=== PATIENT | male | born 1960 | race Asian ===

== ENCOUNTER 2024-04-27 09:10 | Outpatient (REF) | payer OTHER, SELFPAY ==
--- NOTE | ~2024-04-27 | XR_ITS ---
EXAMINATION: XR HAND/WRIST, LEFT CLINICAL INFORMATION: Left hand, evaluate DJD thumb. COMPARISON: None available. TECHNIQUE: 5 views of the left hand and wrist. FINDINGS: Moderate degenerative changes in the first carpometacarpal, metacarpophalangeal and interphalangeal joints with joint space narrowing and hypertrophic change. Narrowing of the radiocarpal space. Moderate degenerative changes in multiple IP joints. Hypertrophic change and joint space narrowing. XR/XR hand wrist LT IMPRESSION: 1/ Moderate degenerative changes in the first carpometacarpal, metacarpophalangeal and interphalangeal joints. 2. Moderate degenerative changes in multiple IP joints. 3. Additional imaging with CT scan or MRI should be considered for better visualization as these modalities are much more sensitive for detection of fracture or other underlying pathology.
--- NOTE | ~2024-04-27 | XR_ITS ---
EXAMINATION: XR CERVICAL SPINE CLINICAL INFORMATION: Neck pain. COMPARISON: None available. TECHNIQUE: 6 views of the cervical spine. FINDINGS: Straightening of the normal cervical lordosis. Diffuse demineralization. Spondylosis with moderate loss of disc space height at C6-C7. XR/XR cervical spine 3V IMPRESSION: Moderate degenerative disc disease at C6-C7.
== END 2024-04-27 09:11 | disposition home or self-care (01) ==
LOC: HO.HOSX 09:10
PROVIDERS: PCP Internal Medicine; Visit Provider Physical Medicine & Rehabilitation
DX: M79.642 Pain in left hand (principal); R20.0 Anesthesia of skin; M54.2 Cervicalgia
CPT/HCPCS: 72040; 73110; 73130; 99202

== ENCOUNTER 2024-04-27 09:10 | Outpatient (AMB) | payer OTHER, SELFPAY ==
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
[2024-04-27 09:31] VITALS: BMI 28.1
== END 2024-04-27 12:35 | disposition home or self-care (01) ==
PROVIDERS: PCP Internal Medicine; Visit Provider Physical Medicine & Rehabilitation
DX: M79.642 Pain in left hand (principal); R20.0 Anesthesia of skin
CPT/HCPCS: 99203

== ENCOUNTER 2024-05-19 13:37 | Outpatient (REF) | payer OTHER, SELFPAY ==
--- NOTE | 2024-05-19 13:43 | EMG_ITS ---
Chief complaint: Left hand numbness, left-sided hip pain with numbness in left leg Reason for referral: Evaluate for radiculopathy Procedure done: Left upper extremity and left lower extremity NCS/EMG Precautions and/or limitations: None The limb temperature was monitored continuously and remained between 32-36 degrees C during the performance of the NCS. Nerve Conduction Studies Anti Sensory Summary Table ?Stim Site NR Onset (ms) Norm Onset (ms) Peak (ms) Norm Peak (ms) O-P Amp (?V) Norm O-P Amp Site1 Site2 Delta-0 (ms) Dist (cm) Joseph (m/s) Norm Joseph (m/s) Left Median Anti Sensory (2nd Digit) Wrist ? 2.8 3.4 <3.6 23.5 >10 Wrist 2nd Digit 2.8 14.0 50 Left Sural Anti Sensory (Lat Mall) Calf ? 2.5 3.0 <4.0 17.7 >5.0 Calf Lat Mall 2.5 14.0 56 Left Ulnar Anti Sensory (5th Digit) Wrist ? 1.4 2.8 <3.7 16.6 >15.0 Wrist 5th Digit 1.4 14.0 100 Motor Summary Table ?Stim Site NR Onset (ms) Norm Onset (ms) O-P Amp (mV) Norm O-P Amp iAmp (mV) Amp (1st) (%) Site1 Site2 Delta-0 (ms) Dist (cm) Joseph (m/s) Norm Joseph (m/s) Left Median Motor (Abd Poll Brev) Wrist ? 4.6 <3.9 6.7 >4.5 8.3 100.0 Elbow Wrist 3.8 21.0 55 >45 Elbow ? 8.4 7.0 8.5 104.5 Left Peroneal Motor (Ext Dig Brev) Ankle ? 3.8 <4.0 5.9 >2.5 7.8 100.0 Ankle Ext Dig Brev 3.8 0.0 B Fib ? 9.6 7.8 10.3 132.2 B Fib Ankle 5.8 31.5 54 >40 Poplt ? 10.4 7.7 10.2 130.5 Poplt B Fib 0.8 5.0 62 >40 Left Tibial Motor (Abd Arroyo Brev) Ankle ? 4.5 <5 17.1 >2.5 23.1 100.0 Ankle Abd Arroyo Brev 4.5 0.0 Knee ? 12.5 11.4 14.7 66.7 Knee Ankle 8.0 36.0 45 >40 Left Ulnar Motor (Abd Dig Minimi) Wrist ? 2.3 <3.0 7.4 >5 8.5 100.0 B Elbow Wrist 3.4 20.5 60 >45 B Elbow ? 5.7 6.6 7.7 89.2 A Elbow B Elbow 2.0 10.0 50 >45 A Elbow ? 7.7 6.3 7.4 85.1 Comparison Summary Table ?Stim Site NR Peak (ms) Norm Peak (ms) P-T Amp (?V) Site1 Site2 Delta-P (ms) Norm Delta (ms) Left Median/Radial Dig I Comparison (Digit 1 - 10cm) Median ? 2.9 <2.9 39.0 Median Radial 0.6 Radial ? 2.3 <2.8 35.4 EMG ?Side Muscle Nerve Root Ins Act Fibs Psw Amp Dur Poly Recrt Int Pat Comment Left 1stDorInt Ulnar C8-T1 Nml Nml Nml Nml Nml 0 Nml Complete Left FlexCarRad Median C6-7 Nml Nml Nml Nml Nml 0 Nml Complete Left Biceps Musculocut C5-6 Nml Nml Nml Nml Nml 0 Nml Complete Left Triceps Radial C6-7-8 Nml Nml Nml Nml Nml 0 Nml Complete Left Deltoid Axillary C5-6 Nml Nml Nml Nml Nml 0 Nml Complete Left AbdHallucis MedPlantar S1-2 Nml Nml Nml Nml Nml 0 Nml Complete Left AntTibialis Dp Br Peron L4-5 Nml Nml Nml Nml Nml 0 Nml Complete Left PostTibialis Tibial L5, S1 Nml Nml Nml Nml Nml 0 Nml Complete Left MedGastroc Tibial S1-2 Nml Nml Nml Nml Nml 0 Nml Complete Left VastusMed Femoral L2-4 Nml Nml Nml Nml Nml 0 Nml Complete FINDINGS: Left median motor nerve showed prolonged distal latency, normal amplitude and normal conduction velocity. Left median sensory nerve showed prolonged peak latency. All other nerves tested were within normal. Concentric needle EMG was performed in selected muscles of the left upper extremity and left lower extremity. Study did not reveal signs of electric abnormalities as shown in the table above. IMPRESSION: 1. This is an abnormal study. 2. There is electrodiagnostic evidence for left mild-moderate median neuropathy at the wrist, consistent with Carpal Tunnel Syndrome. 3. There is no electrodiagnostic evidence for ulnar neuropathy, brachial plexopathy, cervical radiculopathy, peroneal neuropathy, tibial neuropathy. lumbosacral plexopathy, lumbar radiculopathy, or peripheral neuropathy. CLINICAL COMMENT: Suspect symptoms on left upper extremity is separate from left lower extremity. Carpal Tunnel Syndrome would explain numbness in left hand. Patient mentions going to pain management for left hip pain and had injection. Would be interested to review notes from pain management. Patient to be seen for follow up at physiatry office. Thank you for your kind referral. Yamileth Betancourt MD, HEATH Board Certified, [place] Board of Physical Medicine and Rehabilitation (ABPMR) Board Certified, [place] Board [employer] Electrodiagnostic Medicine (ABEM) CODIN [id number] x 2 [facility]
== END 2024-05-19 13:38 | disposition home or self-care (01) ==
LOC: HO.NEURO 13:37
PROVIDERS: Visit Provider Physical Medicine & Rehabilitation
DX: M79.642 Pain in left hand (principal); R20.0 Anesthesia of skin
CPT/HCPCS: 95886; 95910

== ENCOUNTER → 2024-05-19 13:43 | Outpatient (BNV) | payer OTHER, SELFPAY | PROVIDERS: Visit Provider Physical Medicine & Rehabilitation | DX: G56.02 Carpal tunnel syndrome, left upper limb (principal); M79.605 Pain in left leg; R20.0 Anesthesia of skin | CPT/HCPCS: 95886; 95910 ==

== ENCOUNTER 2024-06-23 11:34 | Outpatient (AMB) | payer OTHER, SELFPAY ==
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
[2024-06-23 11:59] VITALS: BMI 28.1
== END 2024-06-23 12:19 | disposition home or self-care (01) ==
PROVIDERS: Visit Provider Physical Medicine & Rehabilitation
DX: G56.02 Carpal tunnel syndrome, left upper limb (principal); M19.042 Primary osteoarthritis, left hand
CPT/HCPCS: 99213

== ENCOUNTER → 2024-06-23 11:34 | Outpatient (BNVA) | payer OTHER, SELFPAY | PROVIDERS: Visit Provider Physical Medicine & Rehabilitation | DX: G56.02 Carpal tunnel syndrome, left upper limb (principal); M19.042 Primary osteoarthritis, left hand | CPT/HCPCS: 99212 ==

== ENCOUNTER 2024-07-20 11:13 | Outpatient (AMB) | payer OTHER, SELFPAY ==
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
== END 2024-07-20 11:46 | disposition home or self-care (01) ==
PROVIDERS: Visit Provider Orthopaedic Surgery
DX: G56.02 Carpal tunnel syndrome, left upper limb (principal); M18.12 Unilateral primary osteoarthritis of first carpometacarpal joint, left hand; Z04.3 Encounter for examination and observation following other accident
CPT/HCPCS: 99204

== ENCOUNTER → 2024-07-20 11:13 | Outpatient (BNVA) | payer OTHER, SELFPAY | PROVIDERS: Visit Provider Orthopaedic Surgery | DX: G56.02 Carpal tunnel syndrome, left upper limb (principal); M18.12 Unilateral primary osteoarthritis of first carpometacarpal joint, left hand; M79.642 Pain in left hand; M25.532 Pain in left wrist | CPT/HCPCS: 99202 ==

== ENCOUNTER 2024-09-12 11:34 | Day surgery (SDC) | payer OTHER, SELFPAY ==
[2024-09-12 07:22] VITALS: BMI 28.3
[2024-09-12 11:43] VITALS: BP 127/60; PULSE 69; RESP 18; TEMP 36.4; O2SAT 97
--- NOTE | 2024-09-12 12:21 | P.OP_ITS ---
Operative Note Operative Note Date of Service: 09/12/24 Narrative: Preop diagnosis: 1. Left Carpal tunnel syndrome Postop diagnosis: same Procedure: 1. Left Carpal tunnel release Surgeon: Cony Brewer MD Sales And Service Associate: None Anesthesia: local block using 1% lidocaine with epinephrine Findings: Thickened transverse carpal ligament. EBL: Less than 5 mL Specimens: None Complications: None Disposition: Brought to recovery room in stable condition Plan: Follow-up for 10-14 days for wound check and suture removal Indications: The patient is 63 years old, with left carpal tunnel syndrome that has been unresponsive to nonoperative management. The risks and benefits of operative treatment including but not limited to risk of damage to blood vessels, nerves, tendons, infection, persistent pain, persistent symptoms, or possible need for additional surgery were discussed with the patient and the patient wishes to proceed with surgery. Procedure: Once consent was obtained a local block was performed using a combination of 1% lidocaine with epinephrine. The patient was then brought back to the operating suite and placed on the operative table in supine position. The left upper extremity was prepped and draped in a standard surgical fashion. Once assured that we had a good block, a 2.0 cm longitudinal incision was made centered over the carpal tunnel. The incision was made through the skin to the subcutaneous tissues using a #15 blade. Dissection was made down to the level of the transverse carpal ligament with care being taken to protect the palmar cutaneous nerve. Once the transverse carpal ligament was clearly visualized, a longitudinal incision was made in the transverse carpal ligament 1st using a #15 blade, then using tenotomy scissors under direct visualization. Care was taken to look for and protect the motor branch of the median nerve when seen in this area. Once satisfied with our carpal tunnel release the wound was copiously irrigated with normal saline and hemostasis was obtained with a brief period of local pressure. The skin edges were reapproximated with some 5.0 nylon suture material and a sterile dressing was applied. The patient appears to have tolerated the procedure well and with no complicatio ns. All digits were well vascularized at the conclusion of the case.
--- NOTE | 2024-09-12 12:21 | MHC.SHP ---
Pre-Procedural Eval Section A - 24 Hr Update-Section A only Date of Service: 09/12/24 The patient is an INPATIENT: No Changes since office visit: No Cold of Flu in the past 2 weeks, No New Medical Problems, No Changes in Medication and No Patient answered all questions The patient has been examined within 24 hours of the surgical procedure. The History & Physical has been completed within 30 days and I have reviewed it.: Yes Section B - Complete if H&P > 30 days Chief Complaint: Carpal tunnel syndrome, left upper limb Allergies: Allergies Allergy/AdvReac Type Severity Reaction Status Date / Time apple Allergy Intermediate Itching Verified 07/20/24 11:18 banana Allergy Intermediate Itching Verified 07/20/24 11:18 peach Allergy Intermediate Itching Verified 07/20/24 11:18 Plan Diagnosis/Plan: Unchanged I have reviewed the history and physical and performed a pertinent physical examination on my patient. No changes have occurred unless specified. Time Spent With Patient Time: Total time managing care of this patient today ____ minutes.
[2024-09-12 13:43] VITALS: BP 111/70; PULSE 67; RESP 18
== END 2024-09-12 13:45 | disposition home or self-care (01) ==
PROVIDERS: PCP Internal Medicine; Visit Provider Orthopaedic Surgery
PROC: (CPT 64721; principal; 2024-09-12 13:00)
DX: G56.02 Carpal tunnel syndrome, left upper limb (principal); M18.12 Unilateral primary osteoarthritis of first carpometacarpal joint, left hand; M79.645 Pain in left finger(s); R20.0 Anesthesia of skin; R20.2 Paresthesia of skin; M19.049 Primary osteoarthritis, unspecified hand; M79.642 Pain in left hand; M25.532 Pain in left wrist; Z56.0 Unemployment, unspecified; Z98.890 Other specified postprocedural states; Z79.899 Other long term (current) drug therapy
CPT/HCPCS: 64721; J0171; J2003

== ENCOUNTER → 2024-09-12 11:34 | Outpatient (BNV) | payer OTHER, SELFPAY | PROVIDERS: PCP Internal Medicine; Visit Provider Orthopaedic Surgery | DX: G56.02 Carpal tunnel syndrome, left upper limb (principal) | CPT/HCPCS: 64721 ==

== ENCOUNTER 2024-09-27 12:48 | Outpatient (AMB) | payer OTHER, SELFPAY ==
--- NOTE | 2024-09-27 12:54 | MHC.OFFVIS ---
Intake Visit Reasons: PO LT CTR 09/12/24 AR Intake Note: Osmani is a 63 year old right hand dominant male who presents today post operatively s/p left carpal tunnel release DOS: 09/12/2024 w/ Dr Brewer. Pt states he is overall feeling well and denies any numbness,tingling, or locking of his fingers. Allergies apple Allergy (Intermediate, Verified 09/27/24 12:54) Itching banana Allergy (Intermediate, Verified 09/27/24 12:54) Itching peach Allergy (Intermediate, Verified 09/27/24 12:54) Itching HPI HPI PO LT CTR 09/12/24 AR: Details: Patient is a 63-year-old male who presents for postoperative evaluation status post left carpal tunnel release, DOS 09/12/[address] Brewer. Today, the patient reports that he is feeling well, and only experiences minimal pain at baseline around incision site. Patient reports that his numbness and tingling has completely resolved since surgery. Reports no concerns with range of motion. No other acute complaints or concerns at this time. [facility], [facility] Medical History Hand arthritis Carpal tunnel syndrome of left wrist Surgical History Hx of hemorrhoidectomy Hx of transurethral resection of prostate Social History Alcohol intake: current Alcohol intake frequency: holidays/special occasions only Patient Tobacco Use Status: Never used Tobacco Current occupational status: unemployed Current occupation: Construction / right hand dominant Physical Exam Extrem Other: Neuro: Normal sensation of the tips of all digits of the left hand No thenar or intrinsic wasting. Good APB muscle firing and good finger cross. Vascular: Capillary refill brisk. ROM: Patient can make a fist and extend all their digits. Skin: No lacerations or abrasions noted. General: No ecchymosis. No erythema or evidence of infection. Assessment & Plan Assessment & Plan (1) Carpal tunnel syndrome of left wrist: Code(s): G56.02 - Carpal tunnel syndrome, left upper limb Category: Medical Plan 1. Carpal tunnel syndrome, left, status post carpal tunnel release DOS 09/12/2024 Patient appears to be recovering well postoperatively Patient was educated about the typical recovery course At this time, patient is informed that he will not require any acute follow-up with us, as he appears to be recovering very well Patient also states he is having no symptoms on the right side, so there is no indication for EMG and nerve conduction study on right this time Patient was amenable to this plan Patient will follow-up as needed with any acute concerns Coding Level of Care Code Global (81112) Diagnoses Carpal tunnel syndrome of left wrist G56.02
== END 2024-09-27 13:30 | disposition home or self-care (01) ==
DX: G56.02 Carpal tunnel syndrome, left upper limb (principal)
CPT/HCPCS: 99024

== ENCOUNTER → 2024-09-27 12:48 | Outpatient (BNVA) | payer OTHER, SELFPAY | DX: G56.02 Carpal tunnel syndrome, left upper limb (principal) | CPT/HCPCS: 99212 ==